=== PATIENT | male | born 1995 | race Caucasian/White ===

== ENCOUNTER 2022-04-10 19:43 | Emergency (ER) | payer OTHER ==
[~2022-04-10] VITALS: Ht 170.2 cm; Wt 76.8 kg
[2022-04-10] MEDS ORDERED: IBUP80TA PO (20:15)
[2022-04-10] MEDS ORDERED: ACET32TAB PO (20:16)
[2022-04-11] MEDS: ACETAMINOPHEN TAB 650MG DOSE (2X325MG) PO ONE (05:46)
[2022-04-11] MEDS ORDERED: PENI500T PO (06:46)
[2022-04-11 06:59] VITALS: BP 120/73
== END 2022-04-11 07:19 | disposition home or self-care (01) ==
LOC: M ED 19:43
DX: J02.0 Streptococcal pharyngitis (principal)

== ENCOUNTER 2023-07-25 16:51 | Inpatient (IN) | payer OTHER ==
[~2023-07-25] VITALS: Ht 170.2 cm; Wt 81.5 kg
[~2023-07-25 16:51] MED LIST: ACET32TAB PO; IBUP80TA PO; PENI500T PO
[2023-07-25] MEDS ORDERED: HOME MED LIST COMPLETE! XX SCH (17:40)
[2023-07-25 17:55] LABS: HEMATOCRIT 47.1 % (42.0-52.0); HEMOGLOBIN 16.7 g/dl (13.5-17.5); MEAN CORPUSCULAR HEMOGLOBIN 31.5 pg (27.0-33.0); MEAN CORPUSCULAR HGB CONC 35.5 g/dl (32.0-36.5); MEAN CORPUSCULAR VOLUME 88.7 fl (80.0-96.0); PLATELET COUNT, AUTOMATED 272 10^3/uL (150-450); RED BLOOD COUNT 5.31 10^6/uL (4.30-6.10); WHITE BLOOD COUNT 9.5 10^3/uL (4.0-10.0)
[2023-07-25 18:20] LABS: ETHYL ALCOHOL (ETHANOL) < 0.003 % (0.000-0.010)
[2023-07-25 18:21] LABS: SALICYLATE LEVEL < 3.0 MG/DL (<30)
[2023-07-25 18:22] LABS: ALBUMIN 4.2 G/DL (3.2-5.2); ALKALINE PHOSPHATASE 89 U/L (46-116); ALT/SGPT 18 U/L (7.0-40); AST/SGOT 12 U/L (<34); BILIRUBIN,DIRECT 0.1 MG/DL (<0.4); BILIRUBIN,TOTAL 0.3 MG/DL (0.3-1.2); BLOOD UREA NITROGEN 11 MG/DL (9-23); CALCIUM LEVEL 9.5 MG/DL (8.5-10.1); CARBON DIOXIDE LEVEL 25 MMOL/L (20-31); CHLORIDE LEVEL 106 MMOL/L (98-107); CREATININE FOR GFR 0.76 MG/DL (0.70-1.30); GLOMERULAR FILTRATION RATE > 60.0 (>60); GLUCOSE, FASTING 89 MG/DL (60-100); SODIUM LEVEL 141 MMOL/L (136-145); TOTAL PROTEIN 7.7 G/DL (5.7-8.2)
[2023-07-25 18:25] LABS: THYROID STIMULATING HORMONE 1.336 uIU/ML (0.55-4.78)
[2023-07-25 19:59] LABS: AMPHETAMINES LEVEL URINE NEGATIVE (NEGATIVE); BARBITURATES URINE NEGATIVE (NEGATIVE); BENZODIAZEPINES URINE NEGATIVE (NEGATIVE)
[2023-07-25 20:00] LABS: CANNABINOIDS URINE NEGATIVE (NEGATIVE); COCAINE METABOLITE URINE NEGATIVE (NEGATIVE); METHADONE URINE NEGATIVE (NEGATIVE); OPIATES URINE NEGATIVE (NEGATIVE); PHENCYCLIDINE URINE NEGATIVE (NEGATIVE)
[2023-07-25] MEDS ORDERED: diphenhydrAMINE 25MG CAP PO PRN (21:15)
[2023-07-25] MEDS ORDERED: MOM 30ML SUSPENSION UDC PO PRN (21:15)
[2023-07-25] MEDS ORDERED: IBUPROFEN 400MG TAB PO PRN (21:15)
[2023-07-25] MEDS ORDERED: traZODone 50 MG TAB PO PRN (21:15)
[2023-07-25] MEDS ORDERED: ACETAMINOPHEN TAB 650MG DOSE (2X325MG) PO PRN (21:15)
[2023-07-25] MEDS ORDERED: MAALOX 30 ML SUSP *UDC PO PRN (21:15)
[2023-07-25 22:55] VITALS: BP 136/82; TEMP 97.3; O2SAT 100
[2023-07-26 05:59] VITALS: BP 117/75; TEMP 97.9
[2023-07-26 17:48] VITALS: BP 143/89; TEMP 97.1; O2SAT 100
[2023-07-27 06:19] VITALS: BP 106/55; TEMP 98
[2023-07-27 16:00] VITALS: BP 127/81; TEMP 98.3; O2SAT 98
[2023-07-28 06:02] VITALS: BP 118/65; TEMP 98.4; O2SAT 98
[2023-07-28 15:29] VITALS: BP 130/64; TEMP 98.5; O2SAT 98
[2023-07-29 06:26] VITALS: BP 121/67; TEMP 98.2; O2SAT 99
[2023-07-29 15:24] VITALS: BP 120/70; TEMP 98; O2SAT 97
[2023-07-29 15:25] VITALS: BP 118/62; TEMP 98.5; O2SAT 98
[2023-07-30 06:42] VITALS: BP 135/92; TEMP 98.7; O2SAT 99
== END 2023-07-30 12:21 | disposition home or self-care (01) | DRG 881 ==
LOC: M ED 16:51 → M ED INP 21:46 → UNDOADMIN 21:46 → M PSY 23:00
PROVIDERS: ADMIT Student in an Organized Health Care Education/Training Program; ATTEND Student in an Organized Health Care Education/Training Program
DX: F32.A Depression, unspecified (principal); R45.851 Suicidal ideations; Z63.5 Disruption of family by separation and divorce; Z91.51 Personal history of suicidal behavior; F43.20 Adjustment disorder, unspecified; F60.89 Other specific personality disorders; F17.200 Nicotine dependence, unspecified, uncomplicated